=== PATIENT | male | born 1970 | race Caucasian/White ===

== ENCOUNTER 2016-10-11 05:59 | Day surgery (SDC) | payer OTHER, BC ==
--- NOTE | 2016-09-09 13:44 | HP ---
DATE OF ADMISSION: 10/11/16 DATE OF DICTATION: 09/05/2016 REASON FOR ADMISSION: Soft tissue mass right neck. BRIEF HISTORY: This is a 46-year-old gentleman who has a soft tissue mass overlying the lateral aspect of his right neck. The mass has gotten larger, and now he has some discomfort in the area and wishes to have this removed. PAST MEDICAL HISTORY: Significant for peptic ulcer disease, hypertension, and patient had a history of stroke, skin cancer, and he has depression and anxiety disorder. MEDICATION: Losartan, metoprolol, Celexa, Nexium, and a steroid inhaler. ALLERGIES: None. 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 PHYSICAL EXAMINATION: HEENT: Patient has a soft tissue mass on the posterior lateral aspect of his neck in the upper third. The mass is approximately the size of a 1.5 cm in diameter. It is mobile. No evidence of infection. These findings are consistent with a neck cyst. It is overlying the upper portion of the sternocleidomastoid. Lungs: Clear. Heart: Regular rhythm. Back: patient has a soft tissue mass just at the medial edge of the scapula just by the tip on the left upper back. This mass is the size of a golf ball, well demarcated, tethered posteriorly, and soft. Findings consistent with intermuscular lipoma. IMPRESSION/PLAN: Soft tissue mass neck. This most likely represents a cyst. We have discussed the pros and cons of the excision, and we have also discussed the possibility of numbness in the preauricular and postauricular region, given this location of this cyst. Patient understands and still wants this removed. We will plan for excision under local anesthesia and sedation. With regard to the lipoma of the back, patient will have this removed some time down in the future. The indications, alternatives, complications of procedure discussed. Questions answered. Will plan to obtain written consent on the day of surgery. CAMILLE NAVAS M.D. [id number] cc: Dr. Matt Robison cc: Dr. Valentín Johnson, [address], [facility]
[2016-10-07 12:21] VITALS: BMI 32.5
[2016-10-11] MEDS ORDERED: LIDOCAINE HCL 1%, 10 MG/ML (20ML VIAL) ONE (07:34)
[2016-10-11] MEDS ORDERED: BUPIVACAINE HCL/PF 0.5% (5MG/ML) 10 ML VIAL ONE (07:34)
[2016-10-11] MEDS ORDERED: LIDOCAINE 1%-EPI 1:100,000 30 ML MDV IJ ONE (07:34)
[2016-10-11] MEDS ORDERED: BUPIVACAINE HCL/PF 2.5 MG/ML - 30 ML VIAL IJ ONE (07:34)
[2016-10-11] MEDS ORDERED: MIDAZOLAM HCL 2 MG/2 ML SINGLE DOSE VIAL ONE ×2 (07:43→08:22)
[2016-10-11] MEDS ORDERED: PROPOFOL 20 ML ONE (07:55)
[2016-10-11] MEDS ORDERED: LIDOCAINE 1%/EPI 1:100000 (20 ML MULTI DOSE VIAL) INF ONE (08:13)
[2016-10-11 09:32] VITALS: BP 125/75; PULSE 65; TEMP 98.2
[2016-10-11] MEDS ORDERED: oxyCODONE HCL 5 MG TABLET PO PRN (11:24)
[2016-10-11] MEDS ORDERED: PROMETHAZINE HCL 25 MG/1 ML VIAL IVPUSH PRN (11:25)
--- NOTE | 2016-10-12 08:49 | OP ---
DATE OF OPERATION: 10/11/2016 PREOPERATIVE DIAGNOSIS: Soft tissue mass, right neck. POSTOPERATIVE DIAGNOSIS: Soft tissue mass, right neck, rule out submandibular tumor. PROCEDURE: Excision of right neck mass with 4-cm intermediate wound closure. SURGEON: Miguel Navas MD KISS MIXER: None. ANESTHESIA: Lidocaine 1% without epinephrine, approximately 15 mL/MAC. ESTIMATED BLOOD LOSS: Minimal. SPECIMEN: Soft tissue mass, right neck. MEDICAL COMORBIDITIES: Hypertension, peripheral vascular disease, history of stroke, skin cancer, anxiety and depressive disorder. INDICATION FOR PROCEDURE: This is a gentleman with a longstanding history of having a soft tissue mass in his right neck. It has gotten larger and now it is causing him discomfort. He wishes to have this removed. Patient identified and appropriately positioned on the operating room table. After placement of IV sedation, the right neck prepped and draped in the usual sterile fashion using Betadine. Lidocaine 1% without epinephrine was used for anesthesia. A 4-cm incision overlying the mass was made. Deepened into the subcutaneous tissue. The platysma was divided with the cautery as well. The mass was teased out of the subcutaneous tissue with blunt dissection. The loose attenuated fibers over the mass were incised and the mass was teased out of the musculature of the neck. At the superior aspect, the vasculature to the mass was identified, clamped, and then tied off with a 3-0 Vicryl suture. The mass was then handed off. The wound irrigated. The operative field examined and noted to be hemostatic. Platysma reapproximated with interrupted inverted 3-0 Vicryl suture, the dermis reapproximated with interrupted inverted Vicryl, and the skin closed with 4-0 subcuticular Biosyn followed by Dermabond. Length of incision approximately 4 cm. At the conclusion of the case, sponge and needle counts were correct. The attestation and brief operative note handwritten on the preprinted form. MIGUEL NAVAS M.D. [id number] cc: MD Valentín Rhaman MD, at [address]
--- NOTE | 2016-10-14 13:25 | PATH ---
Surgical Pathology Report Patient Name: [facility]. Rec. #: [id number] /Age/Gender: 1970 (Age: 46) / M Account: [id number] Location: [facility] AMBULATORY Taken: 10/11/2016 Received: 10/11/2016 Reported: 10/14/2016 Physicians: Miguel Nugent Specimen(s) Received RIGHT NECK MASS Clinical History Right neck mass Final Diagnosis SOFT TISSUE, RIGHT NECK, EXCISION: LIPOMA. Electronically Signed Awais Mcknight M.D. Gross Description Received in formalin labeled "right neck mass," is a 1.8 x 1.2 x 0.5 cm portion of yellow, lobulated adipose tissue. Sectioning reveals homogeneous yellow, smooth fat. No areas of hemorrhage or necrosis are identified. The specimen is serially sectioned and entirely submitted in one cassette. /10/11/201610/11/2016
== END 2016-10-11 09:40 | disposition home or self-care (01) ==
LOC: FASU 05:59
PROVIDERS: ATTEND Surgery
PROC: 0JB40ZZ Excision of Right Neck Subcutaneous Tissue and Fascia, Open Approach (ICD-10-PCS; 2016-10-11)
PROC: 0JQ40ZZ Repair Right Neck Subcutaneous Tissue and Fascia, Open Approach (ICD-10-PCS; principal; 2016-10-11 08:14)
DX: D17.0 Benign lipomatous neoplasm of skin and subcutaneous tissue of head, face and neck (principal); I10 Essential (primary) hypertension; Z86.73 Personal history of transient ischemic attack (TIA), and cerebral infarction without residual deficits; Z85.828 Personal history of other malignant neoplasm of skin; F41.9 Anxiety disorder, unspecified; F32.9 Major depressive disorder, single episode, unspecified
CPT/HCPCS: 88304-TC